=== PATIENT | female | born 1945 | race Caucasian/White ===

== ENCOUNTER → 2019-12-21 14:34 | Outpatient (CLI) | payer MEDICARE, SELFPAY ==
[2019-12-21 14:47] LABS: Chloride 103 mmol/L (98-107); Potassium 4.3 mmoL/L (3.5-5.1); Sodium 140 mmol/L (136-145)
[2019-12-21 14:49] LABS: Blood Urea Nitrogen 19 mg/dl (7-17); Estimated Glomerular Filt Rate 70 ml/min (>60); GFR (African American) 84 ML/MIN (>60)
[2019-12-21 14:50] LABS: Alanine Aminotransferase 11 U/L (12-78); Albumin Level 3.9 g/dl (3.5-5.0); Albumin/Globulin Ratio 1.2 (1.1-1.8); Alkaline Phosphatase 139 U/L (38-126); Anion Gap 14.3 mEq/L (5-15); Aspartate Amino Transferase 24 U/L (14-36); Bilirubin,Total 0.9 mg/dl (0.2-1.3); Carbon Dioxide 27 mmol/L (22.0-30.0); Cholesterol 155 mg/dl (140-200); Globulin 3.2 g/dL (1.3-3.2); Total Protein,Serum 7.1 g/dl (6.3-8.2); Triglycerides 47 mg/dl (30-150); VLDL Cholesterol 9 mg/dL (0-40)
[2019-12-21 14:51] LABS: Chol/HDL Ratio 2.7 (1-3.5); Glucose 96 mg/dl (74-100); HDL Cholesterol 57 mg/dl (40-60)
[2019-12-21 14:52] LABS: Basophils % 0.5 % (0.1-2.0); Eosinophils # 0.1 K/mm3 (0.0-0.4); Eosinophils % 1.6 % (0.1-12.0); Hematocrit 43.1 % (37.0-47.0); Hemoglobin 14.4 g/dL (12.2-16.2); Lymphocytes # 1.4 K/mm3 (0.7-4.5); Lymphocytes % 21.3 % (10-50); Mean Corpuscular HGB Conc 33.3 g/dL (31.8-35.4); Mean Corpuscular Hemoglobin 32.7 pg (27.0-31.2); Mean Corpuscular Volume 98.2 fl (81-99); Mean Platelet Volume 8.9 fl (7.4-10.4); Monocytes # 0.4 K/mm3 (0.1-1.0); Monocytes % 5.6 % (1.7-9.3); Neutrophils # 4.6 K/mm3 (1.8-7.8); Platelet Count 252 K/mm3 (142-424); Red Blood Count 4.39 M/mm3 (4.20-5.40); Red Cell Distribution Width 13.5 % (11.5-17.5); White Blood Count 6.5 K/mm3 (4.8-10.8)
[2019-12-21 15:02] LABS: Direct LDL Cholesterol 83.21 mg/dL (100-129)
[2019-12-21 15:08] LABS: T4 (Thyroxine) 8.3 ug/dl (5.53-11.0)
[2019-12-21 15:21] LABS: Thyroid Stimulating Hormone 1.61 uIU/mL (0.465-4.68)
== END ==
PROVIDERS: Visit Provider Family Medicine
DX: R20.0 Anesthesia of skin (principal); R53.83 Other fatigue; I10 Essential (primary) hypertension
CPT/HCPCS: 80053; 80061; 84436; 84443; 85025

== ENCOUNTER → 2020-08-25 14:04 | Outpatient (CLI) | payer MEDICARE, SELFPAY ==
[2020-08-25 16:01] LABS: Basophils % 0.7 % (0.1-2.0); Eosinophils # 0.1 K/mm3 (0.0-0.4); Eosinophils % 1.1 % (0.1-12.0); Hematocrit 45.5 % (37.0-47.0); Hemoglobin 14.3 g/dL (12.2-16.2); Lymphocytes # 1.2 K/mm3 (0.7-4.5); Lymphocytes % 19.8 % (10-50); Mean Corpuscular HGB Conc 31.5 g/dL (31.8-35.4); Mean Corpuscular Hemoglobin 31.5 pg (27.0-31.2); Mean Corpuscular Volume 100.1 fl (81-99); Mean Platelet Volume 9.2 fl (7.4-10.4); Monocytes # 0.3 K/mm3 (0.1-1.0); Monocytes % 5.5 % (1.7-9.3); Neutrophils # 4.3 K/mm3 (1.8-7.8); Platelet Count 258 K/mm3 (142-424); Red Blood Count 4.54 M/mm3 (4.20-5.40); Red Cell Distribution Width 13.1 % (11.5-17.5); White Blood Count 5.9 K/mm3 (4.8-10.8)
[2020-08-25 16:03] LABS: Chloride 108 mmol/L (98-107)
[2020-08-25 16:04] LABS: Potassium 4.2 mmoL/L (3.5-5.1); Sodium 142 mmol/L (136-145)
[2020-08-25 16:06] LABS: Alanine Aminotransferase 9 U/L (12-78); Albumin Level 4.1 g/dl (3.5-5.0); Albumin/Globulin Ratio 1.4 (1.1-1.8); Alkaline Phosphatase 151 U/L (38-126); Anion Gap 9.2 mEq/L (5-15); Aspartate Amino Transferase 23 U/L (14-36); Bilirubin,Total 0.8 mg/dl (0.2-1.3); Blood Urea Nitrogen 20 mg/dl (7-17); Carbon Dioxide 29 mmol/L (22.0-30.0); Estimated Glomerular Filt Rate 61 ml/min (>60); GFR (African American) 73 ML/MIN (>60); Globulin 2.9 g/dL (1.3-3.2)
[2020-08-25 16:07] LABS: Calcium 9.2 mg/dl (8.4-10.2); Chol/HDL Ratio 2.8 (1-3.5); Cholesterol 176 mg/dl (140-200); Glucose 108 mg/dl (74-100); HDL Cholesterol 63 mg/dl (40-60); Triglycerides 62 mg/dl (30-150); VLDL Cholesterol 12 mg/dL (0-40)
[2020-08-25 16:18] LABS: Direct LDL Cholesterol 81.18 mg/dL (100-129)
[2020-08-25 16:23] LABS: T4 (Thyroxine) 9.7 ug/dl (5.53-11.0)
[2020-08-25 16:24] LABS: 25-OH Vitamin D, Total 15.7 ng/mL (30-100)
[2020-08-25 16:37] LABS: Thyroid Stimulating Hormone 1.99 uIU/mL (0.465-4.68)
[2020-08-25 16:42] LABS: Hemoglobin A1C 5.7 % (4.0-6.0)
== END ==
PROVIDERS: Visit Provider Family Medicine
DX: I10 Essential (primary) hypertension (principal); E11.9 Type 2 diabetes mellitus without complications; R20.0 Anesthesia of skin; E55.9 Vitamin D deficiency, unspecified
CPT/HCPCS: 80053; 80061; 82306; 83036; 84436; 84443; 85025

== ENCOUNTER → 2021-08-28 16:00 | Outpatient (CLI) | payer MEDICARE, SELFPAY ==
[2021-08-28 18:00] LABS: Anion Gap 10.2 mEq/L (5-15); Blood Urea Nitrogen 17 mg/dl (7-17); Carbon Dioxide 28 mmol/L (22.0-30.0); Chloride 106 mmol/L (98-107); Estimated Glomerular Filt Rate 81 ml/min (>60); GFR (African American) 98 ML/MIN (>60); Glucose 100 mg/dl (74-100); Potassium 4.2 mmoL/L (3.5-5.1); Sodium 140 mmol/L (136-145)
== END ==
PROVIDERS: Visit Provider Family Medicine
DX: Z00.00 Encounter for general adult medical examination without abnormal findings (principal)
CPT/HCPCS: 80048

== ENCOUNTER → 2022-09-12 13:12 | Outpatient (CLI) | payer MEDICARE, SELFPAY ==
[2022-09-12 13:26] LABS: Basophils # 0.1 K/mm3 (0-0.2); Basophils % 0.8 % (0.1-2.0); Eosinophils # 0.1 K/mm3 (0.0-0.4); Eosinophils % 1.9 % (0.1-12.0); Hematocrit 31.6 % (37.0-47.0); Hemoglobin 9.3 g/dL (12.2-16.2); Lymphocytes % 15.1 % (10-50); Mean Corpuscular HGB Conc 29.3 g/dL (31.8-35.4); Mean Corpuscular Hemoglobin 28.8 pg (27.0-31.2); Mean Corpuscular Volume 98.4 fl (81-99); Mean Platelet Volume 7.7 fl (7.4-10.4); Monocytes # 0.5 K/mm3 (0.1-1.0); Monocytes % 7.9 % (1.7-9.3); Neutrophils # 4.8 K/mm3 (1.8-7.8); Neutrophils % 74.3 % (37.0-80.0); Platelet Count 325 K/mm3 (142-424); Red Blood Count 3.21 M/mm3 (4.20-5.40); Red Cell Distribution Width 14.2 % (11.5-17.5); White Blood Count 6.5 K/mm3 (4.8-10.8)
[2022-09-12 13:42] LABS: Chloride 107 mmol/L (98-107)
[2022-09-12 13:45] LABS: Alanine Aminotransferase 32 U/L (12-78); Albumin Level 3.1 g/dl (3.5-5.0); Alkaline Phosphatase 179 U/L (38-126); Aspartate Amino Transferase 51 U/L (14-36); Bilirubin,Total 0.5 mg/dl (0.2-1.3); Blood Urea Nitrogen 22 mg/dl (7-17); Carbon Dioxide 26 mmol/L (22.0-30.0); Estimated Glomerular Filt Rate 81 ml/min (>60); GFR (African American) 98 ML/MIN (>60); Globulin 3.1 g/dL (1.3-3.2); Total Protein,Serum 6.2 g/dl (6.3-8.2)
[2022-09-12 13:46] LABS: Calcium 8.1 mg/dl (8.4-10.2); Glucose 103 mg/dl (74-100)
[2022-09-12 14:12] LABS: Thyroid Stimulating Hormone 1.27 uIU/mL (0.465-4.68)
[2022-09-12 16:42] LABS: Sodium 138 mmol/L (136-145)
== END ==
PROVIDERS: PCP Family Medicine; Visit Provider Family Medicine
DX: R53.83 Other fatigue (principal); I50.32 Chronic diastolic (congestive) heart failure; K59.00 Constipation, unspecified
CPT/HCPCS: 80053; 84443; 85025